=== PATIENT | female | born 1980 | race African-American/Black ===

== ENCOUNTER 2024-05-04 17:04 | Emergency (ER) | payer MEDICARE, MEDICAID ==
[~2024-05-04] VITALS: Ht 180.3 cm; Wt 100.0 kg
[~2024-05-04 17:04] MED LIST: CALC-1017 PO; PREN-22 PO; PREN-88 PO; TOPUD PO
[2024-05-04 17:07] VITALS: BP 168/95; TEMP 97.3
[2024-05-04] MEDS ORDERED: DEXAMETHASONE 1MG TABLET PO ONE (17:15)
[2024-05-04] MEDS: DEXAMETHASONE 2MG TABLET PO NR (17:33)
[2024-05-04] MEDS: ALBUTEROL (0.083%) 2.5MG/3ML NEB HHN SCH (17:38)
[2024-05-04 17:40] VITALS: PULSE 105; RESP 20; O2SAT 99
[2024-05-04] MEDS: IPRATROPIUM BROMIDE (0.02%) 0.5MG/2.5ML NEB HHN STA (17:40)
[2024-05-04 18:37] VITALS: PULSE 88; RESP 18
== END 2024-05-04 19:05 | disposition home or self-care (01) ==
LOC: ER 17:04
DX: J45.901 Unspecified asthma with (acute) exacerbation (principal); E11.9 Type 2 diabetes mellitus without complications; I10 Essential (primary) hypertension; Z91.040 Latex allergy status; Z91.013 Allergy to seafood; Z98.890 Other specified postprocedural states
CPT/HCPCS: 99291; 71045; 94644; J8540; 94640

== ENCOUNTER 2024-05-08 11:00 | Emergency (ER) | payer MEDICAID, MEDICARE ==
[~2024-05-08] VITALS: Ht 177.8 cm; Wt 100.0 kg
[2024-05-08 11:10] VITALS: BP 157/100; PULSE 100; RESP 20; TEMP 98.8; O2SAT 97
== END 2024-05-08 15:02 | disposition left against medical advice (07) ==
LOC: ER 11:18
DX: M54.50 Low back pain, unspecified (principal); Z53.21 Procedure and treatment not carried out due to patient leaving prior to being seen by health care provider